=== PATIENT | female | born 1975 | race Caucasian/White ===

== ENCOUNTER 2018-02-19 19:48 | Emergency (ER) | payer OTHER ==
[~2018-02-19] VITALS: Ht 170.2 cm; Wt 70.8 kg
[2018-02-19] MEDS ORDERED: IBUPROFEN 200200 M1 (19:50)
[2018-02-19 19:52] VITALS: BP 126/82
[2018-02-19] MEDS ORDERED: AMOXICILLIN 50500 MG PO (20:35)
[2018-02-19] MEDS ORDERED: LIDOCAINE VISC100 ML PO (20:38)
== END 2018-02-19 21:02 | disposition home or self-care (01) ==
LOC: M.ERS 19:48
DX: K04.7 Periapical abscess without sinus (principal); F17.210 Nicotine dependence, cigarettes, uncomplicated; Z88.5 Allergy status to narcotic agent